=== PATIENT | female | born 1970 ===

== ENCOUNTER → 2019-05-02 | Outpatient (CLI) | payer OTHER ==
[2019-05-02 10:15] LABS: Follicle Stimulating Hormone 96.52 IU/L (SEE BELOW); Leuteinizing Hormone 58.3 IU/L
== END | disposition home or self-care (01) ==
LOC: LAB 08:59
PROVIDERS: ATTEND Obstetrics & Gynecology
DX: N91.2 Amenorrhea, unspecified (principal); N95.1 Menopausal and female climacteric states
CPT/HCPCS: 36415; 82670; 83001; 83002; 84403; 84443